=== PATIENT | female | born 1995 | race Caucasian/White ===

== ENCOUNTER 2023-03-19 15:25 | Outpatient (CLI) | payer OTHER | END 2023-03-19 16:17 | disposition home or self-care (01) | LOC: NST 15:25 | PROVIDERS: ATTEND Obstetrics & Gynecology | DX: Z34.83 Encounter for supervision of other normal pregnancy, third trimester (principal) ==

== ENCOUNTER 2023-03-25 12:28 | Inpatient (IN) | payer OTHER ==
[~2023-03-25] VITALS: Ht 157.5 cm; Wt 62.6 kg
[2023-03-25] MEDS ORDERED: PRENATABS RX T1 EACH PO (14:54)
[2023-03-25] MEDS ORDERED: IRON18 MG PO (15:02)
== END 2023-03-27 14:00 | disposition home or self-care (01) | DRG 807 ==
LOC: LDR 12:28 → OB/GYN 12:28 → LDR 12:31 → OB/GYN 17:42
PROVIDERS: ADMIT Obstetrics & Gynecology; ATTEND Obstetrics & Gynecology
PROC: 10E0XZZ Delivery of Products of Conception, External Approach (ICD-10-PCS; principal; 2023-03-25)
PROC: 0KQM0ZZ Repair Perineum Muscle, Open Approach (ICD-10-PCS; 2023-03-25)
PROC: 4A1HXCZ Monitoring of Products of Conception, Cardiac Rate, External Approach (ICD-10-PCS; 2023-03-25)
DX: O70.1 Second degree perineal laceration during delivery (principal); Z37.0 Single live birth; Z3A.37 37 weeks gestation of pregnancy; Z20.822 Contact with and (suspected) exposure to COVID-19

== ENCOUNTER 2024-05-24 12:19 | Emergency (ER) | payer OTHER ==
[~2024-05-24] VITALS: Ht 157.5 cm; Wt 57.2 kg
[~2024-05-24 12:19] MED LIST: IRON18 MG PO; PRENATABS RX T1 EACH PO
[2024-05-24] MEDS ORDERED: ONDANSETRON HCL 2 MG/ML VIAL IV ONE (13:45)
[2024-05-24] MEDS ORDERED: 0.9 % SODIUM CHLORIDE 1,000 ML IV ONE (13:45)
[2024-05-24] MEDS ORDERED: FAMOtidine 10 MG/ML (4ML VIAL) IV ONE (13:45)
[2024-05-24] MEDS ORDERED: ONDANSETRON HCL 2 MG/ML VIAL ONE (13:58)
[2024-05-24] MEDS ORDERED: FAMOTIDINE/PF 20 MG/2 ML VIAL ONE (13:58)
[2024-05-24 14:14] LABS: HEMATOCRIT 38.5 % (36.0-45.00); HEMOGLOBIN 13.2 g/dL (12.0-15.00); MEAN CELL VOLUME 85.9 fL (80.00-100.00); MEAN CORPUSCULAR HEMOGLOBIN 29.5 pg (27.00-32.0); MEAN CORPUSCULAR HGB CONC 34.4 g/dl (32.0-36.0); PLATELET COUNT 305 K/uL (150-450); RED BLOOD COUNT 4.48 M/uL (4.00-6.00); RED CELL DISTRIBUTION WIDTH 15.4 % (11.5-14.5)
[2024-05-24 14:54] LABS: BILIRUBIN TOTAL 0.33 mg/dL (0.3-1.2); CALCIUM 9.2 mg/dL (8.5-10.1); CREATININE SERUM 0.54 mg/dL (0.55-1.02); GFR 135.42; GLOBULINA 3.9 G/DL (2.4-3.5); POTASSIUM 3.66 mEq/L (3.5-5.1); TOTAL PROTEIN 7.9 gm/dL (6.4-8.2)
[2024-05-24 15:25] LABS: PH,URINE 7.5 (5.0-8.0); URINE APPEARANCE Turbid; URINE BILIRRUBIN Negative (NEGATIVE); URINE BLOOD Negative; URINE COLOR Yellow; URINE GLUCOSE Negative (NEGATIVE); URINE KETONE Negative (NEGATIVE); URINE LEUKOCYTE Trace; URINE NITRATE Negative; URINE PROTEIN Trace (NEGATIVE); URINE UROBILINOGEN 0.2 E.U./dl
[2024-05-24 15:30] LABS: URINE EPITHELIAL CELLS 91.1 uL (0.0-38.8); URINE RBC 32.9 uL (0.0-20.8); URINE WBC 22.2 uL (0.0-23.2)
[2024-05-24 15:37] LABS: URINE CAST 0.45 uL (0.0-1.40)
[2024-05-24] MEDS ORDERED: PROMETHAZINE HCL 50 MG/ML AMPUL IM ONE ×2 (17:41→17:45)
== END 2024-05-24 17:51 | disposition home or self-care (01) ==
LOC: ER 12:20
PROVIDERS: General Practice
DX: R11.10 Vomiting, unspecified (principal); Z91.013 Allergy to seafood
CPT/HCPCS: 36415; 76700; 96365; 96366; 99284; J2405; J2550; J3490; J7030